=== PATIENT | male | born 1950 | race Caucasian/White ===

== ENCOUNTER 2017-02-13 14:41 | Observation (INO) | payer MEDICARE, OTHER ==
[2017-02-13] MEDS ORDERED: Sodium Chloride 0.9% 10 ML Syringe FLUSH PRN (14:46)
[2017-02-13] MEDS ORDERED: Ondansetron 4 MG/2 ML SDV IVPUSH ONE (14:47)
[2017-02-13] MEDS ORDERED: Morphine 4 MG/ML Syringe IVPUSH ONE (14:47)
[2017-02-13] MEDS ORDERED: Lactated Ringers 1,000 ML IV SCH (15:00)
[2017-02-13 16:05] LABS: CHLORIDE,CL 99 mmol/L (98-107); SODIUM,NA 136 mmol/L (136-145)
[2017-02-13] MEDS ORDERED: Ondansetron 4 MG/2 ML SDV IVPUSH PRN (17:54)
[2017-02-13] MEDS ORDERED: NS + KCl 20mEq/L 1,000 ML IV SCH (18:00)
[2017-02-13] MEDS ORDERED: Sodium Chloride 0.9% with KCl 1,000 ML IV SCH (18:00)
[2017-02-13] MEDS ORDERED: Loperamide 2 MG Cap PO PRN (18:02)
--- NOTE | 2017-02-13 18:19 | EDM.PDOC ---
ED HPI GENERAL MEDICAL PROBLEM - General Chief Complaint: Gastrointestinal Problem Stated Complaint: ER Time Seen by Provider: 02/13/17 15:00 Source of Information: Reports: Patient History Limitations: Reports: No Limitations - History of Present Illness INITIAL COMMENTS - FREE TEXT/NARRATIVE: Pt. states that he began experiencing nausea/vomiting/diarrhea yesterday. Pt. states that he has vomiting an unknown number of times, and has had near constant diarrhea. He states that he is unable to hold fluids down. He states that he has been febrile. He states that numerous family members were sick in his vicinity during the . He states that he is experiencing some mild dyspnea. He does have a history of severe CAD and CHF. Denies any chest discomfort. Location: Reports: Abdomen, Generalized Quality: Reports: Ache Severity: Moderate Worsens with: Reports: Eating Associated Symptoms: Reports: Nausea/Vomiting Generalized Pain Score (Numeric/FACES): 2 - Related Data Allergies Allergy/AdvReac Type Severity Reaction Status Date / Time No Known Allergies Allergy Verified 02/13/17 15:42 Home Meds: Home Meds Aspirin [Adult Low Dose Aspirin EC] 81 mg PO DAILY 06/30/14 [History] Clopidogrel [Plavix] 75 mg PO DAILY 06/30/14 [History] Multivitamin [Multi-Vitamin Daily] 1 cap PO DAILY 06/30/14 [History] Nitroglycerin [Nitrostat] 0.4 mg SL ASDIRECTED PRN 06/30/14 [History] [place]-3 Fatty Acids [[place]-3] 1,000 mg PO BID 06/30/14 [History] metFORMIN [Glucophage] 1,000 mg PO BIDMEALS 06/30/14 [History] Finasteride [Proscar] 5 mg PO DAILY 07/05/16 [History] Metoprolol Succinate [Toprol XL] 150 mg PO DAILY 07/05/16 [History] Isosorbide Mononitrate [Imdur] 90 mg PO DAILY 07/25/16 [History] Calcium Carbonate [Calcium] 500 mg PO DAILY 02/13/17 [History] Ferrous Sulfate 324 mg PO WITHBREAKFAST 02/13/17 [History] Magnesium Chloride [Mag-64] 64 mg PO DAILY 02/13/17 [History] Tamsulosin [Flomax] 0.4 mg PO PCBREAKFAST 02/13/17 [History] amLODIPine [Norvasc] 5 mg PO DAILY 02/13/17 [History] atorvaSTATin [Lipitor] 40 mg PO BEDTIME 02/13/17 [History] Past Medical History HEENT History: Reports: Impaired Vision Cardiovascular History: Reports: Angina, CAD, High Cholesterol, Hypertension, Stents, Other (See Below) Other Cardiovascular History: aortic stenosis Respiratory History: Reports: None Genitourinary History: Reports: Prostate Disorder Psychiatric History: Reports: None Endocrine/Metabolic History: Reports: Diabetes, Type II Hematologic History: Reports: None Immunologic History: Reports: None Oncologic (Cancer) History: Reports: None - Past Surgical History Cardiovascular Surgical History: Reports: Coronary Artery Stent Respiratory Surgical History: Reports: None GI Surgical History: Reports: Appendectomy Neurological Surgical History: Reports: None Musculoskeletal Surgical History: Reports: Knee Replacement Dermatological Surgical History: Reports: None Social & Family History - Tobacco Use Smoking Status *Q: Former Smoker Years of Tobacco use: 20 Used Tobacco, but Quit: Yes Month Tobacco Last Used: unknown Second Hand Smoke Exposure: No - Caffeine Use Caffeine Use: Reports: Coffee, Soda - Alcohol Use Days Per Week of Alcohol Use: 1 Number of Drinks Per Day: 1 Total Drinks Per Week: 1 - Recreational Drug Use Recreational Drug Use: No ED ROS GENERAL - Review of Systems Review Of Systems: See Below Constitutional: Reports: Chills HEENT: Reports: No Symptoms Respiratory: Reports: No Symptoms Cardiovascular: Reports: No Symptoms Endocrine: Reports: No Symptoms GI/Abdominal: Reports: Abdominal Pain, Diarrhea, Flatus, Nausea, Vomiting : Reports: No Symptoms Musculoskeletal: Reports: No Symptoms Skin: Reports: No Symptoms Neurological: Reports: No Symptoms Psychiatric: Reports: No Symptoms Hematologic/Lymphatic: Reports: No Symptoms Immunologic: Reports: No Symptoms ED EXAM, GENERAL - Physical Exam Exam: See Below Exam Limited By: No Limitations General Appearance: Alert, WD/WN, No Apparent Distress Eye Exam: Bilateral Eye: EOMI, PERRL Nose: Normal Inspection, Normal Mucosa, No Blood Throat/Mouth: Normal Inspection, Normal Lips, Normal Teeth, Normal Gums, Normal Oropharynx, Normal Voice, No Airway Compromise Head: Atraumatic, Normocephalic Neck: Normal Inspection, Supple, Non-Tender, Full Range of Motion Respiratory/Chest: No Respiratory Distress, Lungs Clear, Normal Breath Sounds, No Accessory Muscle Use, Chest Non-Tender Cardiovascular: Normal Peripheral Pulses, Regular Rate, Rhythm, No Edema, No Gallop, No JVD, No Murmur, No Rub GI/Abdominal: Soft, No Organomegaly, No Distention, Pelvis Stable, Other ( mildly tender) Back Exam: Normal Inspection, Full Range of Motion Extremities: Normal Inspection, Normal Range of Motion, Non-Tender, Normal Capillary Refill, No Pedal Edema Neurological: Alert, Oriented, CN II-XII Intact, Normal Cognition, Normal Gait, Normal Reflexes, No Motor/Sensory Deficits Psychiatric: Normal Affect, Normal Mood Skin Exam: Warm, Dry, Intact, Normal Color, No Rash Lymphatic: No Adenopathy EKG INTERPRETATION Comparison: No Change Course - Vital Signs Last Recorded V/S: Last Vital Signs Temp 38.7 C H 02/13/17 17:07 Pulse 124 H 02/13/17 17:07 Resp 12 02/13/17 17:07 BP 100/68 02/13/17 17:07 Pulse Ox 97 02/13/17 17:07 - Orders/Labs/Meds Orders: Active Orders 24 hr Category Date Time Status Blood Glucose Check, Bedside [RC] ONETIME Care 02/13/17 14:48 Active EKG Documentation Completion [RC] STAT Care 02/13/17 14:46 Ordered Abdomen Series w Chest 1V [CR] Stat Exams 02/13/17 14:50 Taken BLOOD SMEARS TO PATHOLOGIST [REF] Stat Lab 02/13/17 15:30 Received CULTURE BLOOD [BC] Stat Lab 02/13/17 15:20 Received CULTURE BLOOD [BC] Stat Lab 02/13/17 15:30 Received UA W/MICROSCOPIC [URIN] Stat Lab 02/13/17 14:50 Uncollected Lactated Ringers [Ringers, Lactated] 1,000 ml Med 02/13/17 15:00 Active IV ASDIRECTED Sodium Chloride 0.9% [Saline Flush] Med 02/13/17 14:46 Active 10 ml FLUSH ASDIRECTED PRN Blood Culture x2 Reflex Set [OM.PC] Stat Oth 02/13/17 14:47 Ordered Peripheral IV Insertion Adult [OM.PC] Routine Oth 02/13/17 14:46 Ordered Medication Orders Amlodipine Besylate (Norvasc) 5 mg PO DAILY [facility] Aspirin (Halfprin) 81 mg PO DAILY [facility] Atorvastatin Calcium (Lipitor) 40 mg PO BEDTIME [facility] Clopidogrel Bisulfate (Plavix) 75 mg PO DAILY [facility] Finasteride (Proscar) 5 mg PO DAILY [facility] Lactated Ringer's (Ringers, Lactated) 1,000 mls @ 500 mls/hr IV ASDIRECTED [facility] Last Admin: 02/13/17 15:25 Dose: 500 mls/hr Potassium Chloride/Sodium Chloride (Normal Saline With 20 Meq Kcl) 1,000 mls @ 200 mls/hr IV ASDIRECTED [facility] Isosorbide Mononitrate (Imdur) 90 mg PO DAILY [facility] Loperamide HCl (Imodium) 2 mg PO Q4H PRN PRN Reason: Diarrhea Magnesium Chloride (Mag-64) 64 mg PO DAILY [facility] Metformin HCl (Glucophage) 1,000 mg PO BIDMEALS [facility] Metoprolol Succinate (Toprol Xl) 150 mg PO DAILY [facility] Non-Formulary Medication (Calcium Carbonate [Calcium]) 500 mg PO DAILY [facility] Non-Formulary Medication (Ferrous Sulfate [Ferrous Sulfate]) 324 mg PO WITHBREAKFAST [facility] Non-Formulary Medication (Multivitamin [Multi-Vitamin Daily]) 1 cap PO DAILY [facility] Non-Formulary Medication ([place]-3 Fatty Acids [[place]-3]) 1,000 mg PO BID [facility] Ondansetron HCl (Zofran) 4 mg IVPUSH Q8H PRN PRN Reason: Nausea Sodium Chloride (Saline Flush) 10 ml FLUSH ASDIRECTED PRN PRN Reason: Keep Vein Open Tamsulosin HCl (Flomax) 0.4 mg PO PCBREAKFAST [facility] Labs: Laboratory Tests 02/13/17 02/13/17 02/13/17 Range/Units 15:30 15:30 15:30 WBC 8.8 (4.0-10.0) x10^3/uL RBC 5.48 (4.5-6.0) x10^6/uL Hgb 12.9 L (14.0-18.0) g/dL Hct 41.9 (40.0-52.0) % MCV 76.5 L (78.0-93.0) fL MCH 23.5 L (26.0-32.0) pg MCHC 30.8 L (32.0-36.0) g/dL RDW Coeff of Danial 25.0 H (10.0-15.0) % Plt Count 305 (130-400) x10^3/uL Add Manual Diff Yes Neutrophils % (Manual) 84 H (50-80) % Band Neutrophils % 8 H (0-6) % Lymphocytes % (Manual) 4 L (25-50) % Monocytes % (Manual) 2 (2-11) % Metamyelocytes % 2 H (0) % Toxic Granulation 1+ slight H Platelet Estimate Adequate Poikilocytosis Rare Anisocytosis 4+ H Microcytosis 1+ slight H Spherocytes 1+ slight H Tear Drop Cells Rare Ovalocytes 2+ moderate H Rouleaux 2+ moderate H PT 11.2 (9.8-11.8) SEC INR 1.0 L (2.0-3.5) Sodium 136 (136-145) mmol/L Potassium 3.2 L (3.5-5.1) mmol/L Chloride 99 (98-107) mmol/L Carbon Dioxide 23 (21-32) mmol/L BUN 32 H (7-18) mg/dL Creatinine 1.2 (0.70-1.30) mg/dL Est Cr Clr Drug Dosing 60.55 mL/min Estimated GFR (MDRD) > 60 Glucose 186 H (74-106) mg/dL Lactic Acid (0.4-2.0) mmol/L Calcium 8.3 L (8.5-10.1) mg/dL Corrected Calcium 8.46 L (8.5-10.1) mg/dL Phosphorus 3.6 (2.6-4.7) mg/dL Magnesium 1.9 (1.8-2.4) mg/dL Total Bilirubin 0.7 (0.2-1.0) mg/dL AST 27 (15-37) U/L ALT 30 (16-63) U/L Alkaline Phosphatase 77 (46-116) U/L POC Troponin I (0.00-0.08) ng/mL C-Reactive Protein 27.2 H (<=0.9) mg/dL NT-Pro-B Natriuret Pep 1280 H (<=125) pg/mL Total Protein 8.1 (6.4-8.2) g/dL Albumin 3.8 (3.4-5.0) g/dL Globulin 4.3 Albumin/Globulin Ratio 0.88 Lipase 192 (73-393) U/L 02/13/17 02/13/17 Range/Units 15:30 15:35 WBC (4.0-10.0) x10^3/uL RBC (4.5-6.0) x10^6/uL Hgb (14.0-18.0) g/dL Hct (40.0-52.0) % MCV (78.0-93.0) fL MCH (26.0-32.0) pg MCHC (32.0-36.0) g/dL RDW Coeff of Danial (10.0-15.0) % Plt Count (130-400) x10^3/uL Add Manual Diff Neutrophils % (Manual) (50-80) % Band Neutrophils % (0-6) % Lymphocytes % (Manual) (25-50) % Monocytes % (Manual) (2-11) % Metamyelocytes % (0) % Toxic Granulation Platelet Estimate Poikilocytosis Anisocytosis Microcytosis Spherocytes Tear Drop Cells Ovalocytes Rouleaux PT (9.8-11.8) SEC INR (2.0-3.5) Sodium (136-145) mmol/L Potassium (3.5-5.1) mmol/L Chloride (98-107) mmol/L Carbon Dioxide (21-32) mmol/L BUN (7-18) mg/dL Creatinine (0.70-1.30) mg/dL Est Cr Clr Drug Dosing mL/min Estimated GFR (MDRD) Glucose (74-106) mg/dL Lactic Acid 2.9 H* (0.4-2.0) mmol/L Calcium (8.5-10.1) mg/dL Corrected Calcium (8.5-10.1) mg/dL Phosphorus (2.6-4.7) mg/dL Magnesium (1.8-2.4) mg/dL Total Bilirubin (0.2-1.0) mg/dL AST (15-37) U/L ALT (16-63) U/L Alkaline Phosphatase (46-116) U/L POC Troponin I 0.02 (0.00-0.08) ng/mL C-Reactive Protein (<=0.9) mg/dL NT-Pro-B Natriuret Pep (<=125) pg/mL Total Protein (6.4-8.2) g/dL Albumin (3.4-5.0) g/dL Globulin Albumin/Globulin Ratio Lipase (73-393) U/L Meds: Medications Generic Name Dose Route Start Last Admin Trade Name Freq PRN Reason Stop Dose Admin Amlodipine Besylate 5 mg 02/14/17 08:00 Norvasc PO DAILY [facility] Aspirin 81 mg 02/14/17 08:00 Halfprin PO DAILY [facility] Atorvastatin Calcium 40 mg 02/13/17 20:00 Lipitor PO BEDTIME [facility] Clopidogrel Bisulfate 75 mg 02/14/17 08:00 Plavix PO DAILY [facility] Finasteride 5 mg 02/14/17 08:00 Proscar PO DAILY [facility] Lactated Ringer's 1,000 mls @ 500 mls/hr 02/13/17 15:00 02/13/17 15:25 Ringers, Lactated IV 500 mls/hr ASDIRECTED [facility] Administration Potassium Chloride/Sodium Chloride 1,000 mls @ 200 mls/hr 02/13/17 18:15 Normal Saline With 20 Meq Kcl IV ASDIRECTED [facility] Isosorbide Mononitrate 90 mg 02/14/17 08:00 Imdur PO DAILY [facility] Loperamide HCl 2 mg 02/13/17 18:02 Imodium PO Q4H PRN Diarrhea Magnesium Chloride 64 mg 02/14/17 08:00 Mag-64 PO DAILY [facility] Metformin HCl 1,000 mg 02/13/17 18:00 Glucophage PO BIDMEALS [facility] Metoprolol Succinate 150 mg 02/14/17 08:00 Toprol Xl PO DAILY [facility] Non-Formulary Medication 500 mg 02/14/17 08:00 Calcium Carbonate [Calcium] PO DAILY [facility] Non-Formulary Medication 324 mg 02/14/17 08:00 Ferrous Sulfate [Ferrous Sulfate] PO WITHBREAKFAST [facility] Non-Formulary Medication 1 cap 02/14/17 08:00 Multivitamin [Multi-Vitamin Daily] PO DAILY [facility] Non-Formulary Medication 1,000 mg 02/13/17 20:00 [place]-3 Fatty Acids [[place]-3] PO BID [facility] Ondansetron HCl 4 mg 02/13/17 17:54 Zofran IVPUSH Q8H PRN Nausea Sodium Chloride 10 ml 02/13/17 14:46 Saline Flush FLUSH ASDIRECTED PRN Keep Vein Open Tamsulosin HCl 0.4 mg 02/14/17 08:00 Flomax PO PCBREAKFAST [facility] Discontinued Medications Generic Name Dose Route Start Last Admin Trade Name Freq PRN Reason Stop Dose Admin Potassium Chloride/Sodium Chloride 1,000 mls @ 150 mls/hr 02/13/17 18:00 Normal Saline With 20 Meq Kcl IV ASDIRECTED [facility] Potassium Chloride/Sodium Chloride 1,000 mls @ 125 mls/hr 02/13/17 18:00 Normal Saline With 40 Meq Kcl IV ASDIRECTED [facility] Morphine Sulfate 4 mg 02/13/17 14:47 02/13/17 15:30 Morphine IVPUSH 02/13/17 14:48 4 mg ONETIME ONE Administration Ondansetron HCl 4 mg 02/13/17 14:47 02/13/17 15:32 Zofran IVPUSH 02/13/17 14:48 4 mg ONETIME ONE Administration - Radiology Interpretation Free Text/Narrative:: abdomen complete x-ray did not reveal any obvious obstruction. Appearance consistent with colitis. Departure - Departure Time of Disposition: 17:15 Disposition: Admitted As Inpatient 66 Clinical Impression: Gastroenteritis - Discharge Information - My Orders Last 24 Hours: My Active Orders 02/13/17 14:46 EKG Documentation Completion [RC] STAT Sodium Chloride 0.9% [Saline Flush] 10 ml FLUSH ASDIRECTED PRN Peripheral IV Insertion Adult [OM.PC] Routine 02/13/17 14:47 Blood Culture x2 Reflex Set [OM.PC] Stat 02/13/17 14:48 Blood Glucose Check, Bedside [RC] ONETIME 02/13/17 14:50 Abdomen Series w Chest 1V [CR] Stat UA W/MICROSCOPIC [URIN] Stat 02/13/17 15:00 Lactated Ringers [Ringers, Lactated] 1,000 ml IV ASDIRECTED 02/13/17 15:20 CULTURE BLOOD [BC] Stat 02/13/17 15:30 BLOOD SMEARS TO PATHOLOGIST [REF] Stat CULTURE BLOOD [BC] Stat - Assessment/Plan Last 24 Hours: My Active Orders 02/13/17 14:46 EKG Documentation Completion [RC] STAT Sodium Chloride 0.9% [Saline Flush] 10 ml FLUSH ASDIRECTED PRN Peripheral IV Insertion Adult [OM.PC] Routine 02/13/17 14:47 Blood Culture x2 Reflex Set [OM.PC] Stat 02/13/17 14:48 Blood Glucose Check, Bedside [RC] ONETIME 02/13/17 14:50 Abdomen Series w Chest 1V [CR] Stat UA W/MICROSCOPIC [URIN] Stat 02/13/17 15:00 Lactated Ringers [Ringers, Lactated] 1,000 ml IV ASDIRECTED 02/13/17 15:20 CULTURE BLOOD [BC] Stat 02/13/17 15:30 BLOOD SMEARS TO PATHOLOGIST [REF] Stat CULTURE BLOOD [BC] Stat Assessment:: Gastroenteritis Plan: Admit observation. Will continue NS with 20meq of KCL at 150ml/hr. Zofran and Reglan for nausea. Loperamide for diarrhea. Stool culture and O and P. Peripheral blood smear. Repeat lactic acid in 6 hours, chemistry and CBC in AM. SCDs for DVT prevention. Telemetry due to history of CAD and dyspnea.
[2017-02-13] MEDS: NS + KCl 20mEq/L 1,000 ML IV SCH ×2 (18:29→18:35)
[2017-02-13] MEDS: metFORMIN 500 MG Tab PO SCH (18:36)
[2017-02-13] MEDS ORDERED: Acetaminophen 500 MG Tab PO ONE (19:37)
[2017-02-13] MEDS: Metoclopramide 10 MG/2 ML SDV IVPUSH PRN (20:00)
[2017-02-13] MEDS ORDERED: atorvaSTATin 40 MG Tab PO SCH (20:00)
[2017-02-13] MEDS: Fish Oil/Omega-3 Fatty Acids 1 Gm Cap PO SCH (20:01)
[2017-02-13] MEDS ORDERED: metroNIDAZOLE/Normal Saline 500 MG in Premix Bag 1 BAG IV ONE (21:29)
[2017-02-13] MEDS ORDERED: Ciprofloxacin in D5W 400 MG in Premix Bag 1 BAG IV ONE ×2 (21:29)
[2017-02-14] MEDS: Metoclopramide 10 MG/2 ML SDV IVPUSH PRN (02:03)
[2017-02-14] MEDS: NS + KCl 20mEq/L 1,000 ML IV SCH (02:04)
[2017-02-14] MEDS ORDERED: HYDROmorphone 1 MG/ML Syringe IVPUSH ONE (03:23)
[2017-02-14] MEDS ORDERED: Sodium Chloride 0.9% 1,000 ML IV ONE (03:31)
[2017-02-14] MEDS ORDERED: NS + KCl 20mEq/L 1,000 ML IV SCH (07:15)
[2017-02-14 07:54] LABS: CHLORIDE,CL 105 mmol/L (98-107); SODIUM,NA 137 mmol/L (136-145)
[2017-02-14] MEDS ORDERED: Aspirin 81 MG Tab.EC PO SCH (08:00)
[2017-02-14] MEDS ORDERED: Tamsulosin 0.4 MG Cap.ER PO SCH (08:00)
[2017-02-14] MEDS: Fish Oil/Omega-3 Fatty Acids 1 Gm Cap PO SCH (08:00)
[2017-02-14] MEDS ORDERED: Multivitamin, Stress Formula with Zinc Tab PO SCH (08:00)
[2017-02-14] MEDS ORDERED: Ferrous Sulfate 325 MG Tab PO SCH (08:00)
[2017-02-14] MEDS ORDERED: amLODIPine 5 MG Tab PO SCH (08:00)
[2017-02-14] MEDS ORDERED: Clopidogrel 75 MG Tab PO SCH (08:00)
[2017-02-14] MEDS ORDERED: Metoprolol Succinate 50 MG Tab.ER PO SCH (08:00)
[2017-02-14] MEDS: metFORMIN 500 MG Tab PO SCH ×2 (08:00→17:53)
[2017-02-14] MEDS ORDERED: Finasteride 5 MG Tab PO SCH (08:00)
[2017-02-14] MEDS ORDERED: Magnesium Chloride 64 MG Tab.ER PO SCH (08:00)
[2017-02-14] MEDS ORDERED: Isosorbide Mononitrate 60 MG Tab.ER PO SCH (08:00)
[2017-02-14] MEDS ORDERED: Calcium Carbonate 750 MG Tab.Chew PO SCH (08:00)
[2017-02-14] MEDS ORDERED: Magnesium Sulfate/Water 2 GM in Premix Bag 1 BAG IV ONE (12:24)
[2017-02-14 14:11] VITALS: BP 101/57
--- NOTE | 2017-02-14 17:58 | PCM.DCSUM1 ---
Discharge Summary - Hospital Course HPI Initial Comments: Patient presented to the emergency department yesterday with nausea, vomiting, and diarrhea. He stated that several of his family members had become ill with similar symptoms after being together for Ghazal dinner and holiday gathering. Brief History: Patient admitted yesterday, treated for dehydration, hypokalemia , nausea/vomiting. Today feels better, is tolerating po, ambulating, no nausea or vomiting, still has diarrhea, but this has slowed. - Discharge Data Discharge Date: 02/14/17 Discharge Disposition: Home, Self-Care 01 Condition: Good - Discharge Diagnosis/Problem(s) (1) Gastroenteritis SNOMED Code(s): 90043554 ICD Code: K52.9 - NONINFECTIVE GASTROENTERITIS AND COLITIS, UNSPECIFIED Status: Acute Priority: Low Current Visit: Yes - Patient Summary/Data Labs Pending at D/C: Labs pending at discharge include culture for c. difficile, ovum and parasites of stool. Will call with any positive growth of bacteria, or any presence of parasites. Recommended Follow-up Testing/Procedures: Follow up with your primary doctor for any additional symptom management. Should resolve in the next couple of days. - Patient Instructions Diet: Usual Diet as Tolerated, Drink 8-10+ Glasses/Day Activity: As Tolerated Driving: May Drive Today Notify Provider of: Fever, Nausea and/or Vomiting - Discharge Plan Home Medications: Home Meds Aspirin [Adult Low Dose Aspirin EC] 81 mg PO DAILY 06/30/14 [History] Clopidogrel [Plavix] 75 mg PO DAILY 06/30/14 [History] Multivitamin [Multi-Vitamin Daily] 1 cap PO DAILY 06/30/14 [History] Nitroglycerin [Nitrostat] 0.4 mg SL ASDIRECTED PRN 06/30/14 [History] Randolph-3 Fatty Acids [Randolph-3] 1,000 mg PO BID 06/30/14 [History] metFORMIN [Glucophage] 1,000 mg PO BIDMEALS 06/30/14 [History] Finasteride [Proscar] 5 mg PO DAILY 07/05/16 [History] Metoprolol Succinate [Toprol XL] 150 mg PO DAILY 07/05/16 [History] Isosorbide Mononitrate [Imdur] 90 mg PO DAILY 07/25/16 [History] Calcium Carbonate [Calcium] 500 mg PO DAILY 02/13/17 [History] Ferrous Sulfate 324 mg PO DAILY 02/13/17 [History] Magnesium Chloride [Mag-64] 64 mg PO DAILY 02/13/17 [History] Tamsulosin [Flomax] 0.4 mg PO DAILY 02/13/17 [History] amLODIPine [Norvasc] 5 mg PO DAILY 02/13/17 [History] atorvaSTATin [Lipitor] 40 mg PO BEDTIME 02/13/17 [History] Forms: ED Department Discharge Referrals: Aleta Peralta DO [Primary Care Provider] - - Discharge Summary/Plan Comment DC Time >30 min.: Yes Discharge Summary/Plan Comment: Follow up with your primary provider as needed. Drink plenty of water or electrolyte replacement drinks like gatorade. Call with any questions or concerns or if you are unable to tolerate food or liquids. You actually don't need to eat over the next 1-2 days as long as you can keep fluids down so you don't get dehydrated. We will call you with the results of your stool samples we ran. You may require antibiotics if any of the results are positive. - Patient Data Vitals - Most Recent: Last Vital Signs Temp 36.9 C 02/14/17 14:00 Pulse 103 H 02/14/17 14:00 Resp 22 H 02/14/17 14:00 BP 101/57 L 02/14/17 14:00 Pulse Ox 97 02/14/17 14:00 Weight - Most Recent: 81.102 kg I&O - Last 24 hours: Intake & Output 02/14/17 02/14/17 02/14/17 06:59 14:59 22:59 Intake Total 2380 180 Output Total 700 Balance 1680 180 Lab Results - Last 24 hrs: Laboratory Results - last 24 hr 02/13/17 02/13/17 02/13/17 Range/Units 19:15 20:25 21:55 WBC (4.0-10.0) x10^3/uL RBC (4.5-6.0) x10^6/uL Hgb (14.0-18.0) g/dL Hct (40.0-52.0) % MCV (78.0-93.0) fL MCH (26.0-32.0) pg MCHC (32.0-36.0) g/dL RDW Coeff of Danial (10.0-15.0) % Plt Count (130-400) x10^3/uL Neut % (Auto) (50.0-80.0) % Lymph % (Auto) (25.0-50.0) % [place] % (Auto) (2.0-11.0) % Eos % (Auto) (0.0-4.0) % Baso % (Auto) (0.2-1.2) % Sodium (136-145) mmol/L Potassium (3.5-5.1) mmol/L Chloride (98-107) mmol/L Carbon Dioxide (21-32) mmol/L BUN (7-18) mg/dL Creatinine (0.70-1.30) mg/dL Est Cr Clr Drug Dosing mL/min Estimated GFR (MDRD) Glucose (74-106) mg/dL POC Glucose 145 H (74-106) mg/dL Lactic Acid 1.8 (0.4-2.0) mmol/L Calcium (8.5-10.1) mg/dL Corrected Calcium (8.5-10.1) mg/dL Phosphorus (2.6-4.7) mg/dL Magnesium (1.8-2.4) mg/dL Total Bilirubin (0.2-1.0) mg/dL AST (15-37) U/L ALT (16-63) U/L Alkaline Phosphatase (46-116) U/L Troponin I (<=0.056) ng/mL C-Reactive Protein (<=0.9) mg/dL NT-Pro-B Natriuret Pep (<=125) pg/mL Total Protein (6.4-8.2) g/dL Albumin (3.4-5.0) g/dL Globulin Albumin/Globulin Ratio Urine Color Dark yellow H (YELLOW) Urine Appearance Clear (CLEAR) Urine pH 5.5 (5.0-8.0) Ur Specific [place] 1.025 Urine Protein 30 H (NEGATIVE) mg/dL Urine Glucose (UA) Negative (NEGATIVE) mg/dL Urine Ketones Negative (NEGATIVE) mg/dL Urine Occult Blood Negative (NEGATIVE) Urine Nitrite Negative (NEGATIVE) Urine Bilirubin Negative (NEGATIVE) Urine Urobilinogen 0.2 (0.2) EU/dL Ur Leukocyte Esterase Negative (NEGATIVE) Urine RBC 0-5 (NOT SEEN) /HPF Urine WBC 0-5 (NOT SEEN) /HPF Ur Squamous Epith Cells Not seen (NEGATIVE) /HPF Amorphous Sediment Rare Urine Bacteria Not seen (NEGATIVE) /HPF Urine Mucus Not seen (NEGATIVE) /LPF 02/13/17 02/14/17 02/14/17 Range/Units 21:55 05:55 07:07 WBC 5.4 (4.0-10.0) x10^3/uL RBC 4.36 L (4.5-6.0) x10^6/uL Hgb 10.4 L D (14.0-18.0) g/dL Hct 33.8 L (40.0-52.0) % MCV 77.5 L (78.0-93.0) fL MCH 23.9 L (26.0-32.0) pg MCHC 30.8 L (32.0-36.0) g/dL RDW Coeff of Danial 23.8 H (10.0-15.0) % Plt Count 217 D (130-400) x10^3/uL Neut % (Auto) 82.5 H (50.0-80.0) % Lymph % (Auto) 9.3 L (25.0-50.0) % [place] % (Auto) 7.8 (2.0-11.0) % Eos % (Auto) 0.0 (0.0-4.0) % Baso % (Auto) 0.4 (0.2-1.2) % Sodium (136-145) mmol/L Potassium (3.5-5.1) mmol/L Chloride (98-107) mmol/L Carbon Dioxide (21-32) mmol/L BUN (7-18) mg/dL Creatinine (0.70-1.30) mg/dL Est Cr Clr Drug Dosing mL/min Estimated GFR (MDRD) Glucose (74-106) mg/dL POC Glucose 173 H (74-106) mg/dL Lactic Acid (0.4-2.0) mmol/L Calcium (8.5-10.1) mg/dL Corrected Calcium (8.5-10.1) mg/dL Phosphorus (2.6-4.7) mg/dL Magnesium (1.8-2.4) mg/dL Total Bilirubin (0.2-1.0) mg/dL AST (15-37) U/L ALT (16-63) U/L Alkaline Phosphatase (46-116) U/L Troponin I 0.021 (<=0.056) ng/mL C-Reactive Protein (<=0.9) mg/dL NT-Pro-B Natriuret Pep (<=125) pg/mL Total Protein (6.4-8.2) g/dL Albumin (3.4-5.0) g/dL Globulin Albumin/Globulin Ratio Urine Color (YELLOW) Urine Appearance (CLEAR) Urine pH (5.0-8.0) Ur Specific [place] Urine Protein (NEGATIVE) mg/dL Urine Glucose (UA) (NEGATIVE) mg/dL Urine Ketones (NEGATIVE) mg/dL Urine Occult Blood (NEGATIVE) Urine Nitrite (NEGATIVE) Urine Bilirubin (NEGATIVE) Urine Urobilinogen (0.2) EU/dL Ur Leukocyte Esterase (NEGATIVE) Urine RBC (NOT SEEN) /HPF Urine WBC (NOT SEEN) /HPF Ur Squamous Epith Cells (NEGATIVE) /HPF Amorphous Sediment Urine Bacteria (NEGATIVE) /HPF Urine Mucus (NEGATIVE) /LPF 02/14/17 02/14/17 02/14/17 Range/Units 07:07 07:07 07:07 WBC (4.0-10.0) x10^3/uL RBC (4.5-6.0) x10^6/uL Hgb (14.0-18.0) g/dL Hct (40.0-52.0) % MCV (78.0-93.0) fL MCH (26.0-32.0) pg MCHC (32.0-36.0) g/dL RDW Coeff of Danial (10.0-15.0) % Plt Count (130-400) x10^3/uL Neut % (Auto) (50.0-80.0) % Lymph % (Auto) (25.0-50.0) % [place] % (Auto) (2.0-11.0) % Eos % (Auto) (0.0-4.0) % Baso % (Auto) (0.2-1.2) % Sodium 137 (136-145) mmol/L Potassium 3.1 L (3.5-5.1) mmol/L Chloride 105 (98-107) mmol/L Carbon Dioxide 23 (21-32) mmol/L BUN 18 (7-18) mg/dL Creatinine 0.8 (0.70-1.30) mg/dL Est Cr Clr Drug Dosing 93.78 mL/min Estimated GFR (MDRD) > 60 Glucose 174 H (74-106) mg/dL POC Glucose (74-106) mg/dL Lactic Acid (0.4-2.0) mmol/L Calcium 7.0 L (8.5-10.1) mg/dL Corrected Calcium 8.04 L (8.5-10.1) mg/dL Phosphorus 2.0 L (2.6-4.7) mg/dL Magnesium 1.7 L (1.8-2.4) mg/dL Total Bilirubin 0.4 (0.2-1.0) mg/dL AST 33 (15-37) U/L ALT 28 (16-63) U/L Alkaline Phosphatase 55 (46-116) U/L Troponin I (<=0.056) ng/mL C-Reactive Protein 21.6 H (<=0.9) mg/dL NT-Pro-B Natriuret Pep 539 H (<=125) pg/mL Total Protein 6.0 L (6.4-8.2) g/dL Albumin 2.7 L (3.4-5.0) g/dL Globulin 3.3 Albumin/Globulin Ratio 0.82 Urine Color (YELLOW) Urine Appearance (CLEAR) Urine pH (5.0-8.0) Ur Specific [place] Urine Protein (NEGATIVE) mg/dL Urine Glucose (UA) (NEGATIVE) mg/dL Urine Ketones (NEGATIVE) mg/dL Urine Occult Blood (NEGATIVE) Urine Nitrite (NEGATIVE) Urine Bilirubin (NEGATIVE) Urine Urobilinogen (0.2) EU/dL Ur Leukocyte Esterase (NEGATIVE) Urine RBC (NOT SEEN) /HPF Urine WBC (NOT SEEN) /HPF Ur Squamous Epith Cells (NEGATIVE) /HPF Amorphous Sediment Urine Bacteria (NEGATIVE) /HPF Urine Mucus (NEGATIVE) /LPF 02/14/17 02/14/17 Range/Units 11:18 17:22 WBC (4.0-10.0) x10^3/uL RBC (4.5-6.0) x10^6/uL Hgb (14.0-18.0) g/dL Hct (40.0-52.0) % MCV (78.0-93.0) fL MCH (26.0-32.0) pg MCHC (32.0-36.0) g/dL RDW Coeff of Danial (10.0-15.0) % Plt Count (130-400) x10^3/uL Neut % (Auto) (50.0-80.0) % Lymph % (Auto) (25.0-50.0) % [place] % (Auto) (2.0-11.0) % Eos % (Auto) (0.0-4.0) % Baso % (Auto) (0.2-1.2) % Sodium (136-145) mmol/L Potassium (3.5-5.1) mmol/L Chloride (98-107) mmol/L Carbon Dioxide (21-32) mmol/L BUN (7-18) mg/dL Creatinine (0.70-1.30) mg/dL Est Cr Clr Drug Dosing mL/min Estimated GFR (MDRD) Glucose (74-106) mg/dL POC Glucose 164 H 131 H (74-106) mg/dL Lactic Acid (0.4-2.0) mmol/L Calcium (8.5-10.1) mg/dL Corrected Calcium (8.5-10.1) mg/dL Phosphorus (2.6-4.7) mg/dL Magnesium (1.8-2.4) mg/dL Total Bilirubin (0.2-1.0) mg/dL AST (15-37) U/L ALT (16-63) U/L Alkaline Phosphatase (46-116) U/L Troponin I (<=0.056) ng/mL C-Reactive Protein (<=0.9) mg/dL NT-Pro-B Natriuret Pep (<=125) pg/mL Total Protein (6.4-8.2) g/dL Albumin (3.4-5.0) g/dL Globulin Albumin/Globulin Ratio Urine Color (YELLOW) Urine Appearance (CLEAR) Urine pH (5.0-8.0) Ur Specific [place] Urine Protein (NEGATIVE) mg/dL Urine Glucose (UA) (NEGATIVE) mg/dL Urine Ketones (NEGATIVE) mg/dL Urine Occult Blood (NEGATIVE) Urine Nitrite (NEGATIVE) Urine Bilirubin (NEGATIVE) Urine Urobilinogen (0.2) EU/dL Ur Leukocyte Esterase (NEGATIVE) Urine RBC (NOT SEEN) /HPF Urine WBC (NOT SEEN) /HPF Ur Squamous Epith Cells (NEGATIVE) /HPF Amorphous Sediment Urine Bacteria (NEGATIVE) /HPF Urine Mucus (NEGATIVE) /LPF Med Orders - Current: Current Medications Amlodipine Besylate (Norvasc) 5 mg PO DAILY [facility] Last Admin: 02/14/17 08:00 Dose: 5 mg Aspirin (Halfprin) 81 mg PO DAILY [facility] Last Admin: 02/14/17 07:59 Dose: 81 mg Atorvastatin Calcium (Lipitor) 40 mg PO BEDTIME [facility] Last Admin: 02/13/17 20:01 Dose: 40 mg Calcium Carbonate/Glycine (Tums Extra Strength) 750 mg PO DAILY [facility] Last Admin: 02/14/17 08:17 Dose: 750 mg Clopidogrel Bisulfate (Plavix) 75 mg PO DAILY [facility] Last Admin: 02/14/17 07:59 Dose: 75 mg Ferrous Sulfate (Ferrous Sulfate) 325 mg PO WITHBREAKFAST [facility] Last Admin: 02/14/17 08:00 Dose: 325 mg Finasteride (Proscar) 5 mg PO DAILY [facility] Last Admin: 02/14/17 07:59 Dose: 5 mg Fish Oil (Fish Oil) 1 gm PO BID [facility] Last Admin: 02/14/17 08:00 Dose: 1 gm Potassium Chloride/Sodium Chloride (Normal Saline With 20 Meq Kcl) 1,000 mls @ 150 mls/hr IV ASDIRECTED [facility] Last Admin: 02/14/17 08:17 Dose: 150 mls/hr Isosorbide Mononitrate (Imdur) 90 mg PO DAILY [facility] Last Admin: 02/14/17 07:59 Dose: 90 mg Loperamide HCl (Imodium) 2 mg PO Q4H PRN PRN Reason: Diarrhea Last Admin: 02/14/17 03:40 Dose: 2 mg Magnesium Chloride (Mag-64) 64 mg PO DAILY [facility] Last Admin: 02/14/17 08:00 Dose: 64 mg Metformin HCl (Glucophage) 1,000 mg PO BIDMEALS [facility] Last Admin: 02/14/17 17:53 Dose: 1,000 mg Metoclopramide HCl (Reglan) 5 mg IVPUSH Q4H PRN PRN Reason: Nausea/Vomiting Last Admin: 02/14/17 02:03 Dose: 5 mg Metoprolol Succinate (Toprol Xl) 150 mg PO DAILY [facility] Last Admin: 02/14/17 07:59 Dose: 150 mg Ondansetron HCl (Zofran) 4 mg IVPUSH Q8H PRN PRN Reason: Nausea Last Admin: 02/14/17 03:39 Dose: 4 mg Sodium Chloride (Saline Flush) 10 ml FLUSH ASDIRECTED PRN PRN Reason: Keep Vein Open Tamsulosin HCl (Flomax) 0.4 mg PO PCBREAKFAST [facility] Last Admin: 02/14/17 07:59 Dose: 0.4 mg Vitamin B Complex/Vit C/Vit E/Zinc (Stress Formula With Zinc) 1 tab PO DAILY [facility] Last Admin: 02/14/17 07:59 Dose: 1 tab Discontinued Medications Acetaminophen (Tylenol Extra Strength) 1,000 mg PO ONETIME ONE Stop: 02/13/17 19:38 Last Admin: 02/13/17 20:00 Dose: 1,000 mg Hydromorphone HCl (Dilaudid) 1 mg IVPUSH ONETIME ONE Stop: 02/14/17 03:24 Last Admin: 02/14/17 03:39 Dose: 1 mg Lactated Ringer's (Ringers, Lactated) 1,000 mls @ 500 mls/hr IV ASDIRECTED [facility] Last Admin: 02/13/17 15:25 Dose: 500 mls/hr Potassium Chloride/Sodium Chloride (Normal Saline With 20 Meq Kcl) 1,000 mls @ 150 mls/hr IV ASDIRECTED [facility] Potassium Chloride/Sodium Chloride (Normal Saline With 40 Meq Kcl) 1,000 mls @ 125 mls/hr IV ASDIRECTED [facility] Potassium Chloride/Sodium Chloride (Normal Saline With 20 Meq Kcl) 1,000 mls @ 150 mls/hr IV ASDIRECTED [facility] Last Admin: 02/14/17 02:04 Dose: 150 mls/hr Metronidazole 500 mg/ Premix 100 mls @ 100 mls/hr IV ONETIME ONE Stop: 02/13/17 22:28 Last Admin: 02/13/17 21:58 Dose: 100 mls/hr Ciprofloxacin/Dextrose 400 mg/ (Premix) 200 mls @ 200 mls/hr IV ONETIME ONE Stop: 02/13/17 22:28 Last Admin: 02/13/17 22:57 Dose: 200 mls/hr Sodium Chloride (Normal Saline) 1,000 mls @ 1,000 mls/hr IV .BOLUS ONE Stop: 02/14/17 04:30 Last Admin: 02/14/17 03:38 Dose: 1,000 mls/hr Magnesium Sulfate 2 gm/ Premix 50 mls @ 25 mls/hr IV ONETIME ONE Stop: 02/14/17 14:23 Last Admin: 02/14/17 12:56 Dose: 25 mls/hr Morphine Sulfate (Morphine) 4 mg IVPUSH ONETIME ONE Stop: 02/13/17 14:48 Last Admin: 02/13/17 15:30 Dose: 4 mg Ondansetron HCl (Zofran) 4 mg IVPUSH ONETIME ONE Stop: 02/13/17 14:48 Last Admin: 02/13/17 15:32 Dose: 4 mg *Q Meaningful Use (DIS) - VTE *Q VTE Criteria *Q: - Stroke *Q Stroke Criteria *Q: - AMI *Q AMI Criteria *Q:
== END 2017-02-14 18:45 | disposition home or self-care (01) ==
LOC: VM.ED 14:41 → VM.MS 16:53
PROVIDERS: ADMIT Physician Assistant; ATTEND Physician Assistant
DX: K52.9 Noninfective gastroenteritis and colitis, unspecified (principal); I25.10 Atherosclerotic heart disease of native coronary artery without angina pectoris; E78.00 Pure hypercholesterolemia, unspecified; I10 Essential (primary) hypertension; E11.9 Type 2 diabetes mellitus without complications; Z79.82 Long term (current) use of aspirin; Z79.84 Long term (current) use of oral hypoglycemic drugs; Z79.899 Other long term (current) drug therapy; Z95.5 Presence of coronary angioplasty implant and graft; Z87.891 Personal history of nicotine dependence
CPT/HCPCS: 36415; 74022; 80053; 81001; 82962; 83605; 83690; 83735; 83880; 84100; 84484; 85025; 85045; 85610; 86140; 87040; 87045; 87046; 87328; 87329; 87493; 93005; 96361; 96365; 96366; 96367; 96375; 96376; 99285; A9270; G0378; J0744; J1170; J2270; J2405; J2765; J3480; J7030; J7120; 85008; 87486; 87581; 87633; 87798; 96374; 99217; 99220; J3475

== ENCOUNTER 2020-11-05 06:21 | Day surgery (SDC) | payer MEDICARE, OTHER ==
[2020-11-05] MEDS ORDERED: Lactated Ringers 1,000 ML IV SCH (07:00)
[2020-11-05] MEDS ORDERED: Sodium Chloride 0.9% 10 ML Syringe FLUSH PRN (07:00)
[2020-11-05] MEDS ORDERED: Propofol 200 MG/20 ML SDV ONE (07:48)
[2020-11-05] MEDS ORDERED: fentaNYL 100 MCG/2 ML SDV ONE (07:48)
[2020-11-05 08:29] VITALS: PULSE 89
[2020-11-05 09:01] VITALS: BP 104/62
--- NOTE | 2020-11-05 14:13 | OR ---
PREOPERATIVE DIAGNOSIS: History of polyps. POSTOPERATIVE DIAGNOSIS: Numerous hyperplastic sigmoid polyps. PROCEDURE PERFORMED: Total flexible colonoscopy with biopsies. ANESTHESIA: MAC anesthesia. COMPLICATIONS: None. BLOOD LOSS: Minimal. FINDINGS: 1. Numerous (greater than 50) sigmoid polyps with the appearance of hyperplastic polyps, 3 biopsies taken with cold forceps and hot snare, 3 mm, 2 mm, 8 mm. 2. Sigmoid colon polyp, 5 mm, hot snare, this was removed due to concern for possible adenomatous changes. Start time 0752, cecum time 0759, stop time 0819. BOWEL PREP: Cisco class 2. INDICATIONS: Mr. Vivas is a 69-year-old male who is here for colonoscopy. His last scope was 4 years ago. He tells me he has a history of polyps. No bloody or dark black stools. No family history of colon cancer. DETAILS OF PROCEDURE: Informed consent was obtained. The patient was brought to the procedure room. MAC anesthesia was induced by Anesthesia colleagues. He was placed in left lateral decubitus position. Colonoscope was introduced into the rectum and advanced all the way to the cecum. The appendiceal orifice and ileocecal valve were photographed to confirm cecum location. The colonoscope was then slowly withdrawn. In the sigmoid colon, there were numerous hyperplastic appearing polyps, numbering estimated to be greater than 50. Several of these were biopsied for sampling. We did also take 1 additional sigmoid polyp which had a questionable adenomatous appearance. A retroflexed view was obtained and the colonoscope was removed. The patient tolerated the procedure well and was awoken from anesthesia by Anesthesia colleagues without incident. PATHOLOGY: Recommend referral to GI for evaluation of hyperplastic polyposis and colon cancer screening recommendations. RKM: 11/05/2020 08:30:20 MODL: 11/05/2020 11:23:17 /[id number]
== END 2020-11-05 09:30 | disposition home or self-care (01) ==
LOC: VM.SDS 06:21
PROVIDERS: ATTEND Student in an Organized Health Care Education/Training Program
DX: Z12.11 Encounter for screening for malignant neoplasm of colon (principal); K51.40 Inflammatory polyps of colon without complications; I25.10 Atherosclerotic heart disease of native coronary artery without angina pectoris; E78.00 Pure hypercholesterolemia, unspecified; E11.9 Type 2 diabetes mellitus without complications; N40.1 Benign prostatic hyperplasia with lower urinary tract symptoms; I11.0 Hypertensive heart disease with heart failure; I50.9 Heart failure, unspecified; I25.2 Old myocardial infarction; Z98.890 Other specified postprocedural states; Z79.82 Long term (current) use of aspirin; Z79.899 Other long term (current) drug therapy; Z79.84 Long term (current) use of oral hypoglycemic drugs; Z88.8 Allergy status to other drugs, medicaments and biological substances
CPT/HCPCS: 00811; 82947; 88305; J2704; J3010; J7120